=== PATIENT | male | born 1955 | race Caucasian/White ===

== ENCOUNTER 2025-03-03 14:40 | Emergency (ER) | payer MEDICARE, SELFPAY ==
--- OUTSIDE RECORDS SUMMARY | 2017-11-04 10:00 | XMS_ITS | Continuity of Care Document ---
Author Organization [facility] Address [address] [place] [address] Phone Care Team Providers Care Floor Installer Name Role Phone Caleb Mehta MD Unavailable Unavailable Allergies, Adverse Reactions, Alerts Substance Reaction Status Criticality No Known Allergies Active No Inform ation Medications Medication Instructions Dosage Effective Dates (start - stop) Status Comments Lipitor 80 mg tablet take 1 tablet by oral route every day 80 MG - Active Coreg 25 mg tablet take 1 tablet by oral route 2 times every day with food 25 MG - Active [place] 5 mg-325 mg tablet take 1 tablet by oral route 3 times every day as needed for pain as needed 1 tablet - Active PRN for pain, avoid driving or operate machines , disp 11/28/17 Xanax 1 mg tablet take 1 tablet by oral route 2 times every day as needed 1 MG - Active Procedures Procedure Date OFFICE/OUTPATIENT VISIT, EST OFFICE/OUTPATIENT VISIT, NEW Advance Directives Directive Yes / No Effective Date File Name No Information Encounters Encounter Description Practice Location Reason(s) For Visit Diagnoses Date Provider Providers Copied on Encounter OFFICE/OUTPA TIENT VISIT, EST [facility], [address] [place], [place], [id number], [place] tel:[phone] [facility] DM (chief complaint) HLP (chief complaint) anxiety1 (chief complaint) HTN (chief complaint) Chronic pain syndromeHyperlipide miaType 2 diabetes mellitus w/ diabetic neuropathyEssential (primary) hypertensionGeneral ized Anxiety Disorder 8 Tyson Ellis. [address] [place], [address] , [place]. tel:[phone] Referring Provider: Caleb Mehta, [address], [place], [place], [id number]. tel:[phone] OFFICE/OUTPA TIENT VISIT, [facility], [address], [place], [place], [id number], [place] tel:[phone] [facility] chronic pain1 (chief complaint) Chronic pain syndromeType 2 diabetes mellitus w/ diabetic neuropathy Aug- 7 Tyson Ellis. [address], [place], [place], [address] , [place]. tel:[phone] Family History Family Member Type Diagnosis Age At Onset No Information Payers Payer name Insurance type Covered alliance party ID Authoriza tion(s) No Information Social History Type Description Quantity Date Captured Comments Alcohol Use Details No Caffeine Use Details Unknown Tobacco Use Status Cigarette smoker Smoking Status Current some day smoker 018 Sex Male Vital Signs Date / Time: Height Weight BMI Pulse Rate Blood Pressure Temperature Respiratory Rate Body Surface Area Head Circumference BMI percentile Pulse Ox Inhaled Ox 4:08 PM 70.00 in 250.40 lbs 35.9 3 kg/m eter (2) 68 /min 135/64 mm[Hg] 98.1 F 18 /min Chief Complaint And Reason For Visit From encounter dated '11/04/2017 15:00'. DM (chief complaint). Description: Pt has DM. pt takes lantus 85 units at bedtime and humalog before meal. he states that his BG is around 150s. pt has neuropathy. Pt took neurontin which did not help. Pt takes norco for chronic neuropathy pain. His previous MD and he was under the careof a CREDIT VERIFICATION CLERK but he told me he does not like her so he is looking for new MD HLP (chief complaint). Description: Pt has HLP .Pt takes lipitor 80 mg. pt denies any myalgia anxiety1 (chief complaint). Description: Pt has chronic anxiety. Pt denies any depression or any suicidal thought. Pt denies any crying spells. Pt takes xanax PRn. and doing ok HTN (chief complaint). Description: Pt has HTN. Pt takes coreg. Pt denies any chest pain or headache. His BP is ok today. Plan Of Treatment Date Type Action Status Goal Special diet education compl eted History Of Present Illness Encounter Date Complaint History Of Prese nt Illness HLP Pt has HLP .Pt t akes lipitor 80 mg. pt denies any myalgia anxiety1 Pt has chronic a nxiety. Pt denies any depression or any suicidal thought. Pt denies any crying spells. Pt takes xanax PRn. and doing ok HTN Pt has HTN. Pt t akes coreg. Pt denies any chest pain or headache. His BP is ok today. DM Pt has DM. pt ta kes lantus 85 units at bedtime and humalog before meal. he states that his BG is around 150s. pt has neuropathy. Pt took neurontin which did not help. Pt takes norco for chronic neuropathy pain. His previous MD and he was under the care of a CREDIT VERIFICATION CLERK but he told me he does not like her so he is looking for new MD chronic pain1 Pt has diabetic neuorpathy. Pt takes neurontin pt was taking norco QID from neurology but he run out of meds and he took one of his son's percocet? and he failed the UDS and he was discharged by his neurologist. He told me he went to see his regular MD who told him he does not want to do norco daily and will cut down the dose for him. He is out of norco now. Pt states that neuorpathy and some nonspecific joint pain. He told me he been to pain management in the pat but does not like injections. Pt comes here for pain management Instructions Date Instruction Additional Infor mation Special diet education Related t o Body mass index (BMI) 35.0-35.9, adult Stop smoking. Related to Type 2 diabetes mellitus w/ diabetic neuropathy Prescribed Activity and Exercise Education Related to Dietary Surveillance and Counseling Prescribed Diet Educ ation/Lifestyle Education Regarding Diet Related to Dietary Surveillance and Counseling Assessments Type Assessment Date assessment Chronic pain syndrome 8 assessment Hyperlipidemia assessment Type 2 diabetes mellitus w/ diab etic neuropathy assessment Essential (primary) hypertension assessment Generalized Anxiety Disorder Nov Mental Status Date Cognitive Assessment Orientation - [place] ed to time, place, person, situation.
--- OUTSIDE RECORDS SUMMARY | 2017-11-04 10:00 | XMS_ITS | Continuity of Care Document ---
Author Organization [facility] Address [address] [place] [address] [place] [address] Phone Care Team Providers Care Marketing Proposal Specialist Name Role Phone Caleb Mehta MD Unavailable [...] day with food 25 MG - Active [place] 5 mg-325 mg tablet take 1 tablet [...] Copied on Encounter OFFICE/OUTPA TIENT VISIT, EST [facility], [address] [place], [place], [id number], [place] tel:[phone] [facility] DM (chief complaint) HLP (chief complaint) anxiety1 (chief complaint) HTN (chief complaint) Chronic pain syndromeHyperlipide miaType 2 diabetes mellitus w/ diabetic neuropathyEssential (primary) hypertensionGeneral ized Anxiety Disorder 8 Tyson Ellis. [address] [place], [address] , [place]. tel:[phone] Referring Provider: Caleb Mehta, [address], [place], [place], [id number]. tel:[phone] OFFICE/OUTPA TIENT VISIT, [facility], [address], [place], [place], [id number], [place] tel:[phone] [facility] chronic pain1 (chief complaint) Chronic pain syndromeType 2 diabetes mellitus w/ diabetic neuropathy Aug- 7 Tyson Ellis. [address], [place], [place], [id number] , [place]. tel:[phone] Family History Family Member Type Diagnosis Age At Onset No Information Payers Payer name Insurance type Covered libertarian ID Authoriza tion(s) No Information Social History [...] and he was under the careof a ENVIRONMENTAL SOLUTIONS ENGINEER but he told me he does not [...] he was under the care of a ENVIRONMENTAL SOLUTIONS ENGINEER but he told me he does not [...] Mental Status Date Cognitive Assessment Orientation - [place] ed to time, place, person, situation.
--- NOTE | ~2025-03-03 | CT_ITS ---
EXAMINATION: CT abdomen pelvis w con DATE: 03/03/2025 17:56 INDICATION: Pancreatitis TECHNIQUE: Computed tomography (CT) of the abdomen and pelvis was performed with 100 mL Omnipaque-350 intravenous contrast. Automated exposure control and iterative reconstruction technique were employed. The dose-length product was 954.96 mGy-cm. COMPARISON: None FINDINGS: Mild discoid atelectasis in the lingula and in the right middle and lower lobes. Small pneumatocele in the right lower lobe. Heart size is normal. Atherosclerotic coronary artery calcifications. Median sternotomy wires and changes of prior coronary artery bypass grafting. Retained epicardial pacemaker leads along the anterior inferior sides of the pericardium. No pericardial or pleural effusion. Focal adenomyomatosis versus small phrygian cap at the fundus of the gallbladder. Liver, spleen, pancreas and left adrenal gland are normal. Small calcification in the right adrenal gland likely sequela of chronic infection or hemorrhage. Kidneys enhance symmetrically with no hydronephrosis. Couple gaston ateral renal cysts the largest on the left measuring 1.5 cm. Bowels including the appendix are normal. The bladder wall thickening which could be due to decompressed state. There is however also subtle haziness to the surrounding fat which raises possibility of cystitis. A few small linear metallic densities at the prostate which could represent fiducial markers, surgical clips or brachytherapy seeds. Small fat-containing right inguinal hernia. No free intraperitoneal gas or fluid. No pathologically enlarged abdominal or pelvic lymphadenopathy. There is prominent calcified atherosclerosis of the normal caliber aorta and many of the other arteries. There is potentially hemodynamically significant stenosis at the origin of the superior mesenteric, the bilateral renal arteries and along the proximal right common iliac artery. Severe lumbar and lower thoracic spondylosis. Large sclerotic lesion occupying a significant portion of the L5 vertebral body with smaller sclerotic lesions in the L4 vertebral body and at the left seventh rib which are concerning for metastatic disease. There are few smaller and more densely sclerotic lesions in the pelvis and more cephalad spine which appear more typical for bone islands but could represent additional metastatic disease. Tiny metallic foreign body anteroinferior the medial aspect of the left posterior sulcus. IMPRESSION: 1. Wall thickening of the bladder with subtle haziness to the surrounding fat raising concern for cystitis. Correlate with urinalysis. No other acute intra- abdominal/pelvic process. 2. Several scattered sclerotic bone lesions most concerning at L4 4 and L5 traore at the prostate is concerning for metastatic prostate cancer. Correlate with clinical history, PSA levels in any prior outside imaging. Could consider bone scan for further evaluation as clinically indicated. 3. Extensive scattered atherosclerotic disease with potentially hemodynamically significant stenosis at the origins of the superior mesenteric and bilateral renal arteries and along the proximal right common iliac artery. Reviewed, dictated and finalized at location A. IMPRESSION: 1. Wall thickening of the bladder with subtle haziness to the surrounding fat r aising concern for cystitis. Correlate with urinalysis. No other acute intra-ab dominal/pelvic process. 2. Several scattered sclerotic bone lesions most concerning at L4 4 and L5 leeanne s at the prostate is concerning for metastatic prostate cancer. Correlate with clinical history, PSA levels in any prior outside imaging. Could consider bone scan for further evaluation as clinically indicated. 3. Extensive scattered atherosclerotic disease with potentially hemodynamically significant stenosis at the origins of the superior mesenteric and bilateral r enal arteries and along the proximal right common iliac artery.
[2025-03-03 14:52] VITALS: BP 152/67; PULSE 59; RESP 13; TEMP 37; O2SAT 99
--- NOTE | 2025-03-03 14:52 | ED_ITS ---
HPI - General Adult General Chief complaint: Nausea/Vomiting/Diarrhea Stated complaint: I got the diarrhea real bad Time Seen by Provider: 03/03/25 14:50 Source: patient Mode of arrival: ambulatory Limitations: no limitations History of Present Illness HPI narrative: 69 years old white male came from home by private car complaining of upset stomach and diarrhea 3-4 episodes a day for the last 1 and have week. Watery stool, no blood, no aggravating or relieving factors,. Patient denies any fever, chills, vomiting, abdominal pain, chest pain, shortness of breath or back pain or urinary symptoms. History of diabetes hypertension hyperlipidemia COPD coronary artery disease, prostatic cancer, currently on medication daily/[facility] and open heart surgery for valve replacement Patient smokes cigarettes, does not drink alcohol, uses marijuana occasionally reports that patient is not eating or drinking lately Patient denies is sick contact, camping or traveling out of town recently. Patient's is asymptomatic Related Data Allergies Allergy/AdvReac Type Severity Reaction Status Date / Time No Known Allergies Allergy Verified 03/03/25 14:54 Review of Systems 2 Review of Systems: All systems reviewed & are unremarkable except as noted in HPI and below Exam 2 Narrative: General appearance: Well-developed, well-nourished Skin: Pale Head: Normocephalic, nontraumatic Eyes: Clear conjunctiva ENT: Oropharynx normal, ears normal, nose normal Neck: Supple, nontender Chest and respiratory: Airway patent, no respiratory distress, no accessory muscle use Heart: Regular rate/rhythm Abdomen: Soft, nontender, no organomegaly, hyperactive bowel sounds Vascular: Normal peripheral pulses, normal capillary refill. Musculoskeletal: Normal range of motion, nontender back Neurologic: Alert and oriented ?3, ELECTRIC SEALING MACHINE OPERATOR is normal as tested, no gross motor deficit Course Vital Signs Vital signs: Vital Signs Temperature 37.0 C 03/03/25 14:52 Pulse Rate 59 L 03/03/25 14:52 Respiratory Rate 13 03/03/25 14:52 Blood Pressure 152/67 H 03/03/25 14:52 Pulse Oximetry 99 03/03/25 14:52 Oxygen Delivery Nasal Cannula 03/03/25 14:52 Oxygen Flow Rate 2 03/03/25 14:52 Temperature 37.0 C 03/03/25 14:52 Pulse Rate 60 03/03/25 18:16 Respiratory Rate 25 H 03/03/25 16:47 Blood Pressure 110/63 03/03/25 18:16 Pulse Oximetry 93 03/03/25 16:47 Oxygen Delivery Nasal Cannula 03/03/25 14:52 Oxygen Flow Rate 2 03/03/25 14:52 Medical Decision Making [facility] Narrative Medical decision making narrative: Patient came with diarrhea for 1 and have week Vital signs stable Physical examination unremarkable except for pale skin Differential diagnosis include unspecified diarrhea, electrolyte imbalance, dehydration Blood workup today includes CBC, CMP, lipase, magnesium showed WBC 11.6, lipase 772/elevated lipase is not secondary to pancreatitis. Patient abdominal exam was benign, CT scan showed no evidence of pancreatitis. Other causes are possible. Urinalysis showed no acute abnormality Stool negative for C diff CT abdomen and pelvis with IV contrast showed wall thickening of the bladder, scattered sclerotic bone lesions L4-L5 patient have history of prostatic cancer. Differential Diagnosis Differential Diagnosis: As above Vital Signs Vital Signs: Vital Signs Temperature 37.0 C 03/03/25 14:52 Pulse Rate 59 L 03/03/25 14:52 Respiratory Rate 13 03/03/25 14:52 Blood Pressure 152/67 H 03/03/25 14:52 Pulse Oximetry 99 03/03/25 14:52 Oxygen Delivery Nasal Cannula 03/03/25 14:52 Oxygen Flow Rate 2 03/03/25 14:52 Temperature 37.0 C 03/03/25 14:52 Pulse Rate 60 03/03/25 18:16 Respiratory Rate 25 H 03/03/25 16:47 Blood Pressure 110/63 03/03/25 18:16 Pulse Oximetry 93 03/03/25 16:47 Oxygen Delivery Nasal Cannula 03/03/25 14:52 Oxygen Flow Rate 2 03/03/25 14:52 Lab Data 03/03/25 15:15 03/03/25 15:15 Labs: Lab Results 03/03/25 03/03/25 03/03/25 Range/Units 15:14 15:15 16:07 WBC 11.6 H (4.5-10.0) K/mm3 RBC 4.55 L (4.6-6.20) M/mm3 Hgb 13.5 L (14.0-18.0) g/dL Hct 42.4 (42.0-52.0) % MCV 93.2 (80-100) fl MCH 29.7 (26-34) pg MCHC 31.8 L (32-36) g/dl RDW 13.5 (11.5-14.5) % Plt Count 230 (150-375) k/mm3 MPV 11.3 H (7.4-10.4) fl Immature Gran % (Auto) 0.4 (0-0.5) % Neut % (Auto) 68.3 (45.5-73.1) % Lymph % (Auto) 22.2 (18.3-44.2) % [place] % (Auto) 5.9 (2.6-8.5) % Eos % (Auto) 2.8 (0-4.4) % Baso % (Auto) 0.4 (0.2-1.2) % Lymph # (Auto) 2.58 (0.9-3.2) K/mm3 [place] # (Auto) 0.7 H (0.1-0.6) K/mm3 Eos # (Auto) 0.3 (0-0.3) K/mm3 Baso # (Auto) 0.1 (0.0-0.1) K/mm3 Abs Immat Gran (auto) 0.05 H (0.00-0.031) K/mm3 Absolute Neuts (auto) 7.9 H (1.3-6.7) K/mm3 Absolute Nucleated RBC 0.000 (0.0-0.012) K/mm3 Nucleated RBC % 0.0 (0.0-0.2) % Sodium 139 (137-145) mmol/L Potassium 4.5 (3.4-5.0) mmol/L Chloride 102 (98-107) mmol/L Carbon Dioxide 28 (22-30) mmol/L Anion Gap 9 (4-12) mmol/L BUN 17 (9-20) mg/dL Creatinine 0.87 (0.7-1.3) mg/dL Estim Creat Clear Calc 83 ml/min Estimated GFR > 60 (59 - ) Glucose 111 H (65-110) mg/dL Calcium 9.1 (8.4-10.2) mg/dL Magnesium 1.5 L (1.6-2.3) mg/dL Total Bilirubin 0.5 (0.2-1.3) mg/dL AST 27 (17-59) U/L ALT 22 (6-50) U/L Alkaline Phosphatase 62 (38-126) U/L Total Protein 7.7 (6.3-8.2) g/dL Albumin 4.4 (3.5-5.1) g/dL Lipase 772 H (23-300) U/L Urine Color Yellow (Yellow) Urine Appearance Clear (Clear) Urine pH 5.0 (5.0-9.0) Ur Specific [place] 1.024 (1.001-1.035) Urine Protein 1+ H (Negative) mg/dL Urine Glucose (UA) 3+ H (Negative) mg/dL Urine Ketones Trace H (Negative) mg/dL Ur Blood (Man) Negative (Negative) Urine Nitrate Negative (Negative) Urine Bilirubin Negative (Negative) Urine Urobilinogen 1.0 (<2.0) mg/dL Leukocyte Esterase Rfl Negative (Negative) ROSENDO/UL Urine RBC 0-2 (0-2) /hpf Urine WBC 0-5 (0-3) /hpf Ur Squamous Epith Cells None seen (Few) /hpf Urine Bacteria None seen /hpf Urine Casts 0-2 C. difficile (PCR) (NEGATIVE) 03/03/25 Range/Units 17:17 WBC (4.5-10.0) K/mm3 RBC (4.6-6.20) M/mm3 Hgb (14.0-18.0) g/dL Hct (42.0-52.0) % MCV (80-100) fl MCH (26-34) pg MCHC (32-36) g/dl RDW (11.5-14.5) % Plt Count (150-375) k/mm3 MPV (7.4-10.4) fl Immature Gran % (Auto) (0-0.5) % Neut % (Auto) (45.5-73.1) % Lymph % (Auto) (18.3-44.2) % [place] % (Auto) (2.6-8.5) % Eos % (Auto) (0-4.4) % Baso % (Auto) (0.2-1.2) % Lymph # (Auto) (0.9-3.2) K/mm3 [place] # (Auto) (0.1-0.6) K/mm3 Eos # (Auto) (0-0.3) K/mm3 Baso # (Auto) (0.0-0.1) K/mm3 Abs Immat Gran (auto) (0.00-0.031) K/mm3 Absolute Neuts (auto) (1.3-6.7) K/mm3 Absolute Nucleated RBC (0.0-0.012) K/mm3 Nucleated RBC % (0.0-0.2) % Sodium (137-145) mmol/L Potassium (3.4-5.0) mmol/L Chloride (98-107) mmol/L Carbon Dioxide (22-30) mmol/L Anion Gap (4-12) mmol/L BUN (9-20) mg/dL Creatinine (0.7-1.3) mg/dL Estim Creat Clear Calc ml/min Estimated GFR (59 - ) Glucose (65-110) mg/dL Calcium (8.4-10.2) mg/dL Magnesium (1.6-2.3) mg/dL Total Bilirubin (0.2-1.3) mg/dL AST (17-59) U/L ALT (6-50) U/L Alkaline Phosphatase (38-126) U/L Total Protein (6.3-8.2) g/dL Albumin (3.5-5.1) g/dL Lipase (23-300) U/L Urine Color (Yellow) Urine Appearance (Clear) Urine pH (5.0-9.0) Ur Specific [place] (1.001-1.035) Urine Protein (Negative) mg/dL Urine Glucose (UA) (Negative) mg/dL Urine Ketones (Negative) mg/dL Ur Blood (Man) (Negative) Urine Nitrate (Negative) Urine Bilirubin (Negative) Urine Urobilinogen (<2.0) mg/dL Leukocyte Esterase Rfl (Negative) ROSENDO/UL Urine RBC (0-2) /hpf Urine WBC (0-3) /hpf Ur Squamous Epith Cells (Few) /hpf Urine Bacteria /hpf Urine Casts C. difficile (PCR) Negative (NEGATIVE) Imaging Data Radiologist's impression: Impressions Abdomen/Pelvis CT 03/03/25 18:17 IMPRESSION: 1. Wall thickening of the bladder with subtle haziness to the surrounding fat raising concern for cystitis. Correlate with urinalysis. No other acute intra- abdominal/pelvic process. 2. Several scattered sclerotic bone lesions most concerning at L4 4 and L5 traore at the prostate is concerning for metastatic prostate cancer. Correlate with clinical history, PSA levels in any prior outside imaging. Could consider bone scan for further evaluation as clinically indicated. 3. Extensive scattered atherosclerotic disease with potentially hemodynamically significant stenosis at the origins of the superior mesenteric and bilateral renal arteries and along the proximal right common iliac artery. Critical Care Time Critical Care Time Critical Care Time: Yes Total Critical Care Time: 30 Discharge Plan Discharge Clinical Impression: Diarrhea Patient Disposition: Home Condition: Stable Instructions: Acute Diarrhea (ED) Additional Instructions: Return if symptoms are worsening , call your family physician for appointment, take Tylenol as as needed for aches and pain, continue home medications. Encourage fluid intake Get eyid-wid-zbfdylg Imodium Patient Language: Upper Sorbian Follow-up/Referrals: PHYSICIAN,FRUIT VENDOR [Primary Care Provider, Internal Medicine] Adryan Reid MD [Physician, Gastroenterology] - 03/04/25
[2025-03-03 15:21] LABS: Hematocrit 42.4 % (42.0-52.0); Hemoglobin 13.5 g/dL (14.0-18.0); Immature Granulocyte Percent A 0.4 % (0-0.5); Lymphocytes Absolute Auto 2.58 K/mm3 (0.9-3.2); Mean Corpuscular HGB Conc 31.8 g/dl (32-36); Mean Corpuscular Hemoglobin 29.7 pg (26-34); Mean Corpuscular Volume 93.2 fl (80-100); Nucleated Red Blood Cells Absolute Auto 0.000 K/mm3 (0.0-0.012); Nucleated Red Blood Cells Perc 0.0 % (0.0-0.2); Platelet Count Result 230 k/mm3 (150-375); Red Blood Count 4.55 M/mm3 (4.6-6.20); White Blood Count 11.6 K/mm3 (4.5-10.0)
[2025-03-03 15:31] LABS: Alanine Aminotransferase 22 U/L (6-50); Albumin Level 4.4 g/dL (3.5-5.1); Alkaline Phosphatase 62 U/L (38-126); Anion Gap 9 mmol/L (4-12); Aspartate Amino Transferase 27 U/L (17-59); Bilirubin,Total 0.5 mg/dL (0.2-1.3); Blood Urea Nitrogen 17 mg/dL (9-20); Calcium 9.1 mg/dL (8.4-10.2); Carbon Dioxide 28 mmol/L (22-30); Chloride 102 mmol/L (98-107); Estimated CRCL calculation 83 ml/min; Estimated Glomerular Filt Rate > 60; Glucose 111 mg/dL (65-110); Lipase 772 U/L (23-300); Potassium 4.5 mmol/L (3.4-5.0); Sodium 139 mmol/L (137-145); Total Protein 7.7 g/dL (6.3-8.2)
[2025-03-03 16:21] VITALS: BP 126/46; PULSE 60; RESP 18; O2SAT 100
[2025-03-03 16:25] LABS: Add Urine Microscopic? YES; Appearance Urine Clear (Clear); Glucose Urine UA 3+ mg/dL (Negative); Leukocyte Esterase Ur Negative LEU/UL (Negative); Nitrate Urine Negative (Negative); Non Pathogenic Casts 0-2; Specific Grav Ur 1.024 (1.001-1.035)
[2025-03-03 16:44] LABS: Magnesium 1.5 mg/dL (1.6-2.3)
[2025-03-03 16:47] VITALS: BP 136/45; PULSE 61; RESP 25; O2SAT 93
[2025-03-03 18:15] VITALS: BP 143/70; PULSE 61
[2025-03-03 18:16] VITALS: BP 110/63; BP 131/56; PULSE 56; PULSE 60
[2025-03-03 18:31] LABS: Toxigenic C. Diff NEGATIVE (NEGATIVE)
[2025-03-03 19:46] VITALS: BP 141/56; PULSE 72; RESP 20; O2SAT 94
== END 2025-03-03 19:46 | disposition home or self-care (01) ==
PROVIDERS: Emergency Provider Emergency Medicine
DX: R19.7 Diarrhea, unspecified (principal); E11.9 Type 2 diabetes mellitus without complications; I10 Essential (primary) hypertension; E78.5 Hyperlipidemia, unspecified; J44.9 Chronic obstructive pulmonary disease, unspecified; I25.10 Atherosclerotic heart disease of native coronary artery without angina pectoris; Z85.46 Personal history of malignant neoplasm of prostate; Z79.899 Other long term (current) drug therapy; F17.210 Nicotine dependence, cigarettes, uncomplicated
CPT/HCPCS: 36415; 74177; 80053; 81001; 83690; 83735; 85025; 87045; 87046; 87427; 87493; 99284; Q9967

== ENCOUNTER 2025-05-06 13:25 | Outpatient (CLI) | payer MEDICARE, SELFPAY ==
--- NOTE | ~2025-05-06 | PE_ITS ---
EXAMINATION: PET_PETPSMAST_PT DATE: 05/06/2025 15:27 INDICATION: Prostate cancer TECHNIQUE: 6.33 mCi of Illucix Ga-68([id number]) was administered i.v. Low dose computed tomography (CT) images were acquired from the base of the brain to the base of the brain to the proximal thighs for attenuation correction and anatomic localization. Positron emission tomography (PET) images were acquired in the same distribution beginning 70 minutes after injection. Images including fused PET/CT images were reconstructed in axial, coronal, and sagittal planes. Automated exposure control technique was employed. The dose-length product was 1180.85mGy-cm. COMPARISON: CT abdomen and pelvis dated 03/03/2025 FINDINGS: Head/neck: Typical pattern of symmetric physiologic increased activity in the lacrimal, parotid and submandibular glands as well as along the mucosa of the nasal and oral cavities, pharynx and hypopharynx. No pathologically enlarged cervical lymphadenopathy or suspicious foci of increased soft tissue uptake in the visualized head or neck. Chest: Mild dependent atelectasis in bilateral lower lobes. Pneumatocele in the right lower lobe. No suspicious pulmonary nodules, pneumonia or pleural effusion. Heart size is normal. Atherosclerotic coronary artery calcifications. Postoperative change of prior median sternotomy and coronary artery bypass gra fting. Thoracic aorta is normal in caliber. No pathologically enlarged or PSMA avid thoracic lymphadenopathy. Abdomen/pelvis/proximal thighs: Physiologic renal accumulation and excretion of activity in the kidneys, bladder and along portions of ureters. There are few small metallic densities in the prostate likely related to prior treatment for reported prostate cancer. There is an approximately 1 cm focus of increased uptake centered near one of the metallic densities at the right peripheral zone of the prostate with maximal SUV of 10.6 consistent with likely locally recurrent disease. Normal degree and slightly heterogenous pattern of increased uptake throughout the liver and spleen without radiologic correlate or dominant PSMA avid lesion. The gallbladder, pancreas and bilateral adrenal glands are normal. Moderate uptake scattered throughout the bowels with typical duodenal and proximal jejunal predominance and without radiologic correlate, also likely physiologic. Normal appendix. Small fat-containing right inguinal hernia. No other abnormal foci of increased soft tissue uptake or pathologically enlarged lymphadenopathy in the abdomen, pelvis or proximal thighs. Musculoskeletal: There are multiple scattered sclerotic bone lesions with corresponding increased PSMA activity consistent with metastatic disease. For reference the largest lesion occupying the majority of the L5 vertebral body and right sided posterior elements demonstrates maximal SUV of 24.4. IMPRESSION: 1. Small focus of increased uptake in the right peripheral zone of the prostate consistent with locally recurrent disease with multiple scattered sclerotic and PSMA avid bone lesions consistent with osseous metastatic disease. No evident hepatic, pulmonary or lymphatic metastatic disease. Reviewed, dictated and finalized at location A. [facility] [employer] IMPRESSION: 1. Small focus of increased uptake in the right peripheral zone of the prostate consistent with locally recurrent disease with multiple scattered sclerotic an d PSMA avid bone lesions consistent with osseous metastatic disease. No evident hepatic, pulmonary or lymphatic metastatic disease.
== END 2025-05-06 13:26 | disposition home or self-care (01) ==
PROVIDERS: Visit Provider Physician Assistant
DX: C61 Malignant neoplasm of prostate (principal); M89.9 Disorder of bone, unspecified
CPT/HCPCS: 78815; A9596